=== PATIENT | female | born 1985 | race Caucasian/White ===

== ENCOUNTER → 2017-02-21 | Outpatient (CLI) | payer BC ==
[~2017-02-21] MED LIST: LPR25 PO; TRIA37.5 PO
[2017-02-21 10:11] LABS: BASO % 0.6 %; BASO ABS # 0.06 K/uL (0-0.2); COMPLETE YES; EOS % 1.2 %; HEMATOCRIT 39.7 % (37-47); IG% 0.3 %; LYMPH % 28.5 %; LYMPH ABS # 3.09 K/uL (1.2-3.4); MEAN CELL VOLUME 88.8 fL (80-100); MEAN CORPUSCULAR HEMOGLOBIN 29.1 pg (25-34); MEAN CORPUSCULAR HGB CONC 32.7 g/dl (32-36); MEAN PLATELET VOLUME 9.1 fL (7.4-10.4); MONO % 6.2 %; NEUT % 63.2 %; PLATELET COUNT 392 K/uL (130-400); RED BLOOD COUNT 4.47 M/uL (4.2-5.4); WHITE BLOOD COUNT 10.86 K/uL (4.8-10.8)
[2017-02-21 10:38] LABS: ALT/SGPT 30 U/L (12-78); BLOOD UREA NITROGEN 8 mg/dl (7-18); BUN/CREATININE RATIO 14.4 (10-20); CARBON DIOXIDE 29 mmol/L (21-32); CHLORIDE 102 mmol/L (98-107); CHOLESTEROL 222 mg/dl (0-200); CREATININE 0.54 mg/dl (0.60-1.20); GLUCOSE 87 mg/dl (70-99); POTASSIUM 3.6 mmol/L (3.5-5.1); SODIUM 138 mmol/L (136-145)
[2017-02-21 10:42] LABS: CALCIUM 9.3 mg/dl (8.5-10.1)
[2017-02-21 10:49] LABS: ALB/GLOB RATIO 0.7 (0.9-2); ALKALINE PHOSPHATASE 85 U/L (45-117); AST/SGOT 17 U/L (15-37); CHOLESTEROL/HDL RATIO 4.7; HDL CHOLESTEROL 47 mg/dl; LDL CHOLESTEROL CALCULATED 136 mg/dl; TRIGLYCERIDES 197 mg/dl (0-150); VERY LOW DENSITY LIPOPROT CALC 39 mg/dl
== END | disposition home or self-care (01) ==
LOC: C.LAB1850 09:21
PROVIDERS: ATTEND Internal Medicine Geriatric Medicine
DX: I10 Essential (primary) hypertension (principal); E28.2 Polycystic ovarian syndrome; G47.30 Sleep apnea, unspecified; E78.5 Hyperlipidemia, unspecified; F32.9 Major depressive disorder, single episode, unspecified; E66.9 Obesity, unspecified

== ENCOUNTER → 2017-11-02 | Outpatient (CLI) | payer BC ==
[2017-11-02 12:59] LABS: BLOOD UREA NITROGEN 11 mg/dl (7-18); CALCIUM 9.6 mg/dl (8.5-10.1); CARBON DIOXIDE 31 mmol/L (21-32); CREATININE 0.58 mg/dl (0.60-1.20); GLUCOSE 81 mg/dl (70-99); POTASSIUM 3.5 mmol/L (3.5-5.1); SODIUM 137 mmol/L (136-145)
== END | disposition home or self-care (01) ==
LOC: C.LAB1850 10:29
PROVIDERS: ATTEND Nurse Practitioner Adult Health
DX: I10 Essential (primary) hypertension (principal)

== ENCOUNTER → 2018-02-12 | Outpatient (CLI) | payer BC ==
[2018-02-12 13:20] LABS: BASO % 0.3 %; BASO ABS # 0.03 K/uL (0-0.2); EOS ABS # 0.11 K/uL (0-0.5); HEMATOCRIT 39.3 % (37-47); HEMOGLOBIN 13.1 g/dL (12.0-16.0); IG# 0.03 K/uL (0.00-0.02); LYMPH % 24.2 %; LYMPH ABS # 2.73 K/uL (1.2-3.4); MEAN CELL VOLUME 87.9 fL (80-100); MEAN CORPUSCULAR HEMOGLOBIN 29.3 pg (25-34); MEAN CORPUSCULAR HGB CONC 33.3 g/dl (32-36); MEAN PLATELET VOLUME 9.1 fL (7.4-10.4); MONO % 6.2 %; NEUT ABS # 7.68 K/uL (1.4-6.5); PLATELET COUNT 417 K/uL (130-400); RED CELL DISTRIBUTION WIDTH CV 13.8 % (11.5-14.5); RED CELL DISTRIBUTION WIDTH SD 44.3 fL (36.4-46.3); WHITE BLOOD COUNT 11.28 K/uL (4.8-10.8)
== END | disposition home or self-care (01) ==
LOC: C.LABBC 10:32
PROVIDERS: ATTEND Nurse Practitioner Adult Health
DX: D72.829 Elevated white blood cell count, unspecified (principal)